=== PATIENT | female | born 1995 | race African-American/Black ===

== ENCOUNTER 2021-03-18 21:19 | Emergency (ER) | payer OTHER ==
[~2021-03-18] VITALS: Ht 160 cm; Wt 63.5 kg
[2021-03-18 22:02] LABS: URINE BILIRUBIN NEGATIVE (Negative); URINE BLOOD TRACE (Negative); URINE CLARITY CLEAR; URINE COLOR YELLOW; URINE GLUCOSE-RANDOM* NEGATIVE (Negative); URINE KETONES NEGATIVE (Negative); URINE LEUKOCYTES-REFLEX TRACE (Negative); URINE NITRITE-REFLEX NEGATIVE (Negative); URINE PROTEIN (DIPSTICK) NEGATIVE (Negative); URINE SPECIFIC GRAVITY 1.025 (1.005-1.035); URINE UROBILINOGEN 0.2 E.U./dl (0.2-1.0)
[2021-03-19] MEDS ORDERED: DOXYCYCLINE 10100 MG PO (00:29)
[2021-03-19 01:04] VITALS: BP 98/63
== END 2021-03-19 01:07 | disposition home or self-care (01) ==
LOC: ER 21:19
PROVIDERS: Emergency Medicine; Nurse Practitioner Family
DX: N89.8 Other specified noninflammatory disorders of vagina (principal); J45.909 Unspecified asthma, uncomplicated